=== PATIENT | female | born 1945 | race Caucasian/White ===

== ENCOUNTER 2017-08-11 07:18 | Day surgery (SDC) | payer MEDICARE, OTHER ==
[~2017-08-11] VITALS: Ht 175.3 cm; Wt 69.1 kg
[2017-08-11] VITALS (14 sets, daily range): BP systolic 93–124; BP diastolic 48–80; PULSE 57–92; TEMP 97.3–98
[2017-08-11] MEDS ORDERED: CALCIUM CARBON650 M2 PO (09:21)
[2017-08-11] MEDS ORDERED: TURMERIC500 MG PO (09:22)
[2017-08-11] MEDS ORDERED: PRENATAL FORMU1 EAC3 PO (09:23)
[2017-08-11] MEDS ORDERED: ZOCOR 40MG40 MG PO (09:23)
[2017-08-11] MEDS ORDERED: BENADRYL25 M2 PO (09:24)
[2017-08-11] MEDS ORDERED: ZANTAC 150MG T150 MG PO (09:24)
[2017-08-11] MEDS ORDERED: LEG CRAMP PO (09:26)
[2017-08-11] MEDS ORDERED: IMODIUM A-D2 MG PO (09:29)
[2017-08-12 04:25] VITALS: BP 109/36; PULSE 55; TEMP 97.9
[2017-08-12 08:21] VITALS: BP 90/46; PULSE 53; TEMP 97.5
== END 2017-08-12 11:30 | disposition home or self-care (01) ==
LOC: SDCO 07:18 → SURG 12:35 → SDCO 08-12 11:30
DX: C67.9 Malignant neoplasm of bladder, unspecified (principal); F17.210 Nicotine dependence, cigarettes, uncomplicated; E28.39 Other primary ovarian failure; Z79.899 Other long term (current) drug therapy
CPT/HCPCS: OP; J0690; J1100; J1885; J2270; J2405; J2704; J3010; J7120

== ENCOUNTER 2017-09-07 05:09 | Observation (INO) | payer MEDICARE, OTHER ==
[~2017-09-07] VITALS: Ht 172.7 cm; Wt 57.5 kg
[~2017-09-07 05:09] MED LIST: BENADRYL25 M2 PO; CALCIUM CARBON650 M2 PO; IMODIUM A-D2 MG PO; LEG CRAMP PO; PRENATAL FORMU1 EAC3 PO; TURMERIC500 MG PO; ZANTAC 150MG T150 MG PO; ZOCOR 40MG40 MG PO
[2017-09-07 05:37] VITALS: BP 120/63; PULSE 93; TEMP 97.9
[2017-09-07 08:45] VITALS: BP 122/56; PULSE 53; TEMP 97
[2017-09-07 09:00] VITALS: BP 128/60; PULSE 50
[2017-09-07 09:15] VITALS: BP 132/52; PULSE 51
[2017-09-07 09:30] VITALS: BP 109/52; PULSE 61
[2017-09-07 15:09] VITALS: BP 110/56; PULSE 60; TEMP 97.9
== END 2017-09-07 17:50 | disposition home or self-care (01) ==
LOC: SDCO 05:09 → SURG 08:26 → SDCO 08:35 → SURG 08:35
DX: C67.2 Malignant neoplasm of lateral wall of bladder (principal); N32.89 Other specified disorders of bladder; E78.5 Hyperlipidemia, unspecified; F17.210 Nicotine dependence, cigarettes, uncomplicated; Z80.42 Family history of malignant neoplasm of prostate
CPT/HCPCS: J0690; J2405; J2704; J3010; J7120

== ENCOUNTER → 2018-01-10 | Outpatient (REF) | LOC: ZLAB.WCH 16:04 | DX: Z01.89 Encounter for other specified special examinations (principal) ==

== ENCOUNTER → 2020-04-25 | Outpatient (REF) ==
[2020-04-25 16:42] LABS: CLOSTRIDIUM DIFF A/B POS; CLOSTRIDIUM DIFF A/B INTERP Toxigenic C.diff POS
== END ==
LOC: ZLAB.WCH 15:43
PROVIDERS: Internal Medicine Gastroenterology
DX: Z01.89 Encounter for other specified special examinations (principal)

== ENCOUNTER 2020-06-22 20:23 | Inpatient (IN) | payer MEDICARE, OTHER ==
[~2020-06-22] VITALS: Ht 172.7 cm; Wt 48.4 kg
[2020-06-22] MEDS ORDERED: ATROVENT I0.2 MG/1 M IH (23:20)
[2020-06-22] MEDS ORDERED: PREDNISONE10 MG PO (23:20)
[2020-06-22] MEDS ORDERED: PREDNISONE 5MG5 MG PO (23:20)
[2020-06-22 23:21] VITALS: BP 108/71; PULSE 95; TEMP 97.7
[2020-06-23] VITALS (8 sets, daily range): BP systolic 86–131; BP diastolic 43–68; PULSE 89–102; TEMP 97.2–97.8
[2020-06-23 06:44] LABS: BASO % 0.1 % (0.0-2.0); EOS % 0.2 % (0-4.0); GRAN # 10.1 (1.4-6.5); GRAN % 81.7 % (42.2-75.2); HEMATOCRIT 37.4 % (37.0-47.0); HEMOGLOBIN 12.8 g/dl (12.5-16.0); LYMPH # 1.5 (1.2-3.4); LYMPH % 12.5 % (20.0-51.0); MEAN CELL VOLUME 92 fl (80.0-100.0); MEAN CORPUSCULAR HEMOGLOBIN 31 pg (27.0-31.0); MEAN CORPUSCULAR HGB CONC 34 g/dl (33.0-37.0); MEAN PLATELET VOLUME 8.7 fl (7.4-10.4); MONO # 0.6 (0.1-0.6); PLATELET COUNT 330 K/mm3 (130-400); RED BLOOD COUNT 4.07 M/mm3 (4.10-5.30); REDCELL DISTRIBUTION WIDTH-CV 11.9 % (11.5-14.5)
[2020-06-23 06:59] LABS: CALCIUM 8.5 mg/dL (8.4-10.2); CREATININE, serum 0.67 (0.52-1.25); POTASSIUM 3.8 mmol/L (3.4-5.0)
--- NOTE | 2020-06-23 07:55 | NUR ---
Lying in bed with eyes open. Alert and oriented x4. Having some pain behind ears, patient thinks this is from rubbing the enlarged lymph nodes on the pillow while sleeping. Tylenol administered as prescribed for this discomfort per patient request. Patient also have all over itching, patient says that this is due to the prednisone that she is on and she has had this in the past, takes Benadryl at home for the itching. Benadryl administered as prescribed at this time. Assist patient in ordering clear liquid diet for breakfast. Patient denies additional needs or concerns at this time.
--- NOTE | 2020-06-23 11:24 | NUR ---
Sitting up in chair watching TV. Would like to go to bed to try to take a nap at this time. Assist patient into bed. Patient request IV site to be dc'd from left AC and restarted somewhere else. Restarted IV in left hand and dc'd prior IV site. Order clear liquid lunch per patient request. Denies additional needs at this time.
--- NOTE | 2020-06-23 13:00 | NUR ---
Review consent for ultrasound guided lymph node biopsy in neck with the patient. Patient denies questions and signs consent. Consent placed in chart. Patient sitting up in bed doing crosswords at this time. Denies additional needs.
--- NOTE | 2020-06-23 13:50 | NUR ---
Patient to ultrasound via wheelchair at this time.
--- NOTE | 2020-06-23 15:02 | NUR ---
Hr Leader met with the patient to complete intake. The patient lives in [place] with her , Earl. Her daughter, Kelly lives nearby. The patient has a walker. The [facility] has [facility]. The patient's PCP is Dr. Kavita Marsh and patient receives medications from [facility]. The patient does not have advanced directives in the EMR. The patient states they are complete and her PCP office has a copy. The patient plans to return home at discharge with home health services. ROMY contacted Karissa with Dr. Marsh's office and she confirmed they have a advanced directives on file and she will fax them to this SW. ROMY faxed referral/updates to [facility]. Discharge disposition: Home with [facility] [place], PT/OT/Nursing
--- NOTE | 2020-06-23 15:42 | NUR ---
Patient back in room in bed. Has bandaid on right side of neck from US. Patient says that the ultrasound went better than she had expected. Dr. Gipson in talking with the patient. Spouse in room as well. Denies additional needs at this time.
--- NOTE | 2020-06-23 15:47 | NUR ---
Oncology consult has been placed. Patient says that she has not seen either of the oncologists in the past. Patient says that she had spoken with a friend and they recommended Dr. Becker but told her either was good. Message left for Dr. Becker to contact this nurse.
--- NOTE | 2020-06-23 16:06 | NUR ---
Dr. Becker returns call and is updated on consult.
[2020-06-23 17:02] LABS: LACTATE DEHYDROGENASE 309 U/L (313-618)
--- NOTE | 2020-06-23 17:18 | NUR ---
Discuss with the patient fluid restriction and no free water. Patient says that she does not agree with the no free water because she is chronically hyponatremic and where is level is at is where her PCM says that she is good. Explain that we can discuss this with the provider further tomorrow. Powerade provided to the patient. Patient sitting up in bed finishing eating dinner. Denies additional needs at this time.
[2020-06-23 18:05] LABS: OSMOLALITY-SERUM 278 Osm/kg (275-300)
--- NOTE | 2020-06-23 20:00 | NUR ---
PATIENT WAS RECEIVED IN BED CALM.DUE MEDS GIVEN,ASSESMENT DONE.REPORTED OF PAINFUL JAWS.MEDS GIVEN PER MAY.HAS A AGUILERA.NO OTHER NEED AT THIS TIME.
[2020-06-24 03:20] VITALS: BP 100/41; PULSE 99; TEMP 98.1
--- NOTE | 2020-06-24 05:26 | NUR ---
PATIENT REMAINS CALM.PATIENT IS ON RA,IVFS ON GOOD PROGRESS.PATIENT WAS REPORTING OF PAIN ON THE JAW PAIN MEDS GIVEN PER MAY.NO OTHER NEEDS AT THIS TIME.
[2020-06-24 06:03] LABS: EOS % 0.1 % (0-4.0); GRAN # 6.3 (1.4-6.5); GRAN % 77.9 % (42.2-75.2); LYMPH # 1.2 (1.2-3.4); LYMPH % 15.4 % (20.0-51.0); MEAN CELL VOLUME 93 fl (80.0-100.0); MEAN CORPUSCULAR HGB CONC 34 g/dl (33.0-37.0); MONO # 0.5 (0.1-0.6); MONO % 6.1 % (1.7-9.3); PLATELET COUNT 249 K/mm3 (130-400); RED BLOOD COUNT 3.12 M/mm3 (4.10-5.30); REDCELL DISTRIBUTION WIDTH-CV 11.9 % (11.5-14.5)
[2020-06-24 06:18] LABS: HEMATOCRIT 29.1 % (37.0-47.0); HEMOGLOBIN 9.8 g/dl (12.5-16.0); MEAN CORPUSCULAR HEMOGLOBIN 31 pg (27.0-31.0)
[2020-06-24 06:19] LABS: CALCIUM 7.8 mg/dL (8.4-10.2); CREATININE, serum 0.61 (0.52-1.25); POTASSIUM 3.3 mmol/L (3.4-5.0)
--- NOTE | 2020-06-24 06:35 | NUR ---
Sitting up in bed with eyes open working on crossword puzzle. Alert and oriented x4. Rates pain in jaw area 2/10, describes as sore. Denies cough or shortness of air. Still feels some weakness with activity. [place] to dependent drainage with clear yellow urine in bag. Patient is ready to meet with Dr. Becker and says that Dr. Daniels is going to meet with her and her spouse this morning as well. Provide some Powerade to patient. Denies additional needs at this time.
[2020-06-24 07:24] VITALS: BP 104/50; PULSE 94; TEMP 97.7
--- NOTE | 2020-06-24 09:32 | NUR ---
Assessment as charted. Pt restingin bed upon arrivla. Band-aid dressing right side of neck clean, no edema, not redness. IV infusingNS @ 100 ml/hr. Telemetry on sinus rhythm. Pt denies no c/o pain.
[2020-06-24 10:45] VITALS: BP 110/59; PULSE 109; TEMP 97.8
--- NOTE | 2020-06-24 10:59 | NUR ---
Rating pain 7/10 in neck and jaw area and would like pain medication. Administer Dilaudid and Tylenol as prescribed. Patient lying in bed with eyes open. Is going to try to take a nap. Denies additional needs. Will talk with the hospitalist team further about the fluid restriction and free water restriction.
--- NOTE | 2020-06-24 11:54 | NUR ---
Sitting up in bed eating lunch. Rates pain 1/, says medication helped a lot. Discuss the fluid restriction and free water changes that were made. Discuss needing magnesium replaced via IV. Patient wants to wait until after IV mag is done to take hagan out. IV fluids dc'd as ordered. Patient denies additional needs at this time.
[2020-06-24] MEDS ORDERED: PREMARIN .3MG0.3 MG PO (13:58)
--- NOTE | 2020-06-24 14:14 | NUR ---
Catheter discontinued, joyce care completed. Pt. tolerated well, laying in bed. Denies any further needs at this time, call light within reach.
[2020-06-24 15:34] VITALS: BP 125/63; PULSE 112; TEMP 97.8
--- NOTE | 2020-06-24 16:40 | NUR ---
Sitting up in bed working on crosswOesia and watching TV. Minimal pain at this time in right jaw/neck but would like some Tylenol totry to stay ahead of the pain. Administer as prescribed. Patient says that she has urinated twice since having the catheter removed. Has ordered dinner and is waiting on it to be delivered. Denies additional needs at this time.
[2020-06-24 19:36] VITALS: BP 131/61; PULSE 105; TEMP 97.8
[2020-06-24 23:54] VITALS: BP 110/56; PULSE 105; TEMP 97.6
[2020-06-25 04:47] VITALS: BP 127/69; PULSE 96; TEMP 97.8
--- NOTE | 2020-06-25 06:33 | NUR ---
NO NEW ISSUES NOTED OR REPORTED BY PATIENT THROUGHOUT THE SHIFT. PATIENT UP TO THE BATHROOM X'3 THROUGHOUT THE NIGHT.
[2020-06-25 06:41] LABS: HEMATOCRIT 34.7 % (37.0-47.0); HEMOGLOBIN 11.6 g/dl (12.5-16.0); MEAN CELL VOLUME 94 fl (80.0-100.0); MEAN CORPUSCULAR HEMOGLOBIN 31 pg (27.0-31.0); MEAN CORPUSCULAR HGB CONC 33 g/dl (33.0-37.0); MEAN PLATELET VOLUME 8.6 fl (7.4-10.4); PLATELET COUNT 306 K/mm3 (130-400); RED BLOOD COUNT 3.69 M/mm3 (4.10-5.30); REDCELL DISTRIBUTION WIDTH-CV 12.1 % (11.5-14.5)
[2020-06-25 06:53] LABS: CALCIUM 8.8 mg/dL (8.4-10.2); CREATININE, serum 0.57 (0.52-1.25); MAGNESIUM 1.8 mg/dL (1.6-2.3); POTASSIUM 3.6 mmol/L (3.4-5.0)
[2020-06-25 07:41] VITALS: BP 130/81; PULSE 106; TEMP 97.5
--- NOTE | 2020-06-25 08:30 | NUR ---
Patient in bed working on [employer]. Alert and oriented x 3. Assessment complete. Bandaid to right neck from biopsy is CDI. Patient denies pain at this time. Dr. Becker in to see patient early this AM. Patient denies further needs at this time.
--- NOTE | 2020-06-25 10:02 | NUR ---
Technology Sales Specialist attended clinical rounds with the team. The patient's on speaker phone. The patient to have an MRI this day. Surgery consulted.
[2020-06-25] MEDS ORDERED: ZOFRAN ODT4 MG PO ×2 (10:12)
[2020-06-25] MEDS ORDERED: MELATONIN3 M1 PO ×2 (10:12)
[2020-06-25] MEDS ORDERED: NORCO 325 MG-51 TAB PO ×2 (10:14)
[2020-06-25 11:20] VITALS: BP 117/58; PULSE 113; TEMP 98.1
--- NOTE | 2020-06-25 13:31 | NUR ---
Patient to MRI by wheelchair.
--- NOTE | 2020-06-25 14:35 | NUR ---
Primary nurse was assisted with [phone] patient care by [employer] student Sridevi Bernal and [employer] instructor Jenny Odom MSN, RN
--- NOTE | 2020-06-25 14:45 | NUR ---
Primary nurse was assisted with [phone] patient care by [employer] AD[employer] student Sridevi Bernal and [facility] AD[employer] instructor Jenny Odom MSN, RN
--- NOTE | 2020-06-25 14:59 | NUR ---
Primary nurse was assisted with [phone] patient care by [employer] student Sridevi Bernal and [employer] instructor Jenny Odom MSN, RN
[2020-06-25 15:51] VITALS: BP 122/66; PULSE 102; TEMP 97.5
--- NOTE | 2020-06-25 16:04 | NUR ---
[facility]
--- NOTE | 2020-06-25 16:20 | NUR ---
HospitalistTHUY, patient's nurse staffed with this Director Of Graduate Admissions regarding discharge disposition. The patient and her , Bridger would like the patient to go to post acute rehab prior to starting chemo in order to build strength to withstand treatment. ROMY met with the patient and Bridger to discuss Medicare.gov's list of SNFs. The first choice is [facility] and second choice is [facility]. Referrals sent. Covid-19 test ordered. Awaiting screen. Discharge disposition: SNF; First choice [facility], Second choice [facility]. Referrals sent. Awaiting screen.
--- NOTE | 2020-06-25 18:13 | NUR ---
Patient doing well throughout the day. Up to recliner for meals. Deneis pain at this time, medication given this afternoon for neck pain. Denies further needs at this time. Will report off to emotional support teacher.
[2020-06-25 20:31] VITALS: BP 118/59; PULSE 111; TEMP 97.5
[2020-06-26 01:05] VITALS: BP 110/68; PULSE 95; TEMP 97.4
[2020-06-26 03:30] VITALS: BP 124/65; PULSE 91; TEMP 97.6
[2020-06-26 06:54] LABS: HEMOGLOBIN 10.7 g/dl (12.5-16.0); MEAN CELL VOLUME 95 fl (80.0-100.0); MEAN CORPUSCULAR HEMOGLOBIN 32 pg (27.0-31.0); MEAN CORPUSCULAR HGB CONC 34 g/dl (33.0-37.0); MEAN PLATELET VOLUME 8.7 fl (7.4-10.4); PLATELET COUNT 281 K/mm3 (130-400); RED BLOOD COUNT 3.35 M/mm3 (4.10-5.30); REDCELL DISTRIBUTION WIDTH-CV 12.5 % (11.5-14.5)
--- NOTE | 2020-06-26 07:03 | NUR ---
Report with ANAMARIA Simmons. Pt sitting up in bed ordering breakfast, denies needs at this time. Call light in reach.
[2020-06-26 07:07] LABS: CALCIUM 8.7 mg/dL (8.4-10.2); CREATININE, serum 0.5 (0.52-1.25); POTASSIUM 3.4 mmol/L (3.4-5.0)
[2020-06-26 07:08] LABS: HEMATOCRIT 31.7 % (37.0-47.0)
[2020-06-26 07:24] VITALS: BP 112/70; PULSE 115; TEMP 97.5
--- NOTE | 2020-06-26 07:47 | NUR ---
Primary nurse ANAMARIA Lyn reviewed ECG for Sotalol dose this AM. QT Interval with in range to give medication. Patient is NPO, he will still receive morning medications with a few sips of water per primary nurse.
--- NOTE | 2020-06-26 07:52 | NUR ---
Previous note entered by [facility] [facility] AD[employer] student.
--- NOTE | 2020-06-26 08:45 | NUR ---
Pt reports pain to right chest/shoulder radiating up to right face 8 out of 10 on pain scale. Pt requesting pain medication but not Tylenol with Codeine. PRN Dilaudid administered per orders. No further needs reported. Call light in reach.
[2020-06-26] MEDS ORDERED: NYSTATIN OR100 MU/ML PO (09:13)
[2020-06-26] MEDS ORDERED: ANORO IH ×2 (09:15)
[2020-06-26] MEDS ORDERED: PROVENTIL0.09 MG/A1 IH ×2 (09:15)
[2020-06-26 11:25] VITALS: BP 116/74; PULSE 117; TEMP 97.4
--- NOTE | 2020-06-26 11:25 | NUR ---
Director Building attended clinical rounds with the team. The patient's was on speaker phone. Dr. Daniels and Dr. Becker are recommending the patient start treatment jocelyn. The patient and her were agreeable to the original discharge plan of returning home with [facility] with PT/OT/Nursing services versus post acute rehab. The patient will discharge home today, 06/26. After rounds, ROMY met with the patient to present the IM form. The patient understood and signed the form. A copy was provided to the patient and the original was placed in the chart. ROMY faxed discharge orders to [facility] with [facility]. ROMY contacted [facility] and they will continue with services for the patient. There are no additional needs.
--- NOTE | 2020-06-26 13:45 | NUR ---
Primary nurse was assisted with [phone] patient care by [employer] student Sridevi Bernal and [employer] instructor Jenny Odom MSN, RN.
--- NOTE | 2020-06-26 14:18 | NUR ---
Provider notified to change prescriptions sent to [facility] instead of [facility] in [place] per pt's request. Discharge instructions reviewed with pt regarding appointments and new medications. Pt discharged home, escorted out of facility via WC accompanied by EDI DEVELOPER and pt's .
[2020-06-26] MEDS ORDERED: NORCO 325 MG-51 TAB PO (14:25)
== END 2020-06-26 14:25 | disposition home health service (06) | DRG 829 ==
LOC: MEDICAL 20:23
PROVIDERS: Physician Assistant; Student in an Organized Health Care Education/Training Program; ADMIT Hospitalist
PROC: 07B13ZX Excision of Right Neck Lymphatic, Percutaneous Approach, Diagnostic (ICD-10-PCS; principal; 2020-06-23)
DX: C7A.1 Malignant poorly differentiated neuroendocrine tumors (principal); E87.1 Hypo-osmolality and hyponatremia; K86.1 Other chronic pancreatitis; Z85.51 Personal history of malignant neoplasm of bladder; R53.81 Other malaise; F17.210 Nicotine dependence, cigarettes, uncomplicated; K59.00 Constipation, unspecified; E87.6 Hypokalemia; J40 Bronchitis, not specified as acute or chronic; D72.829 Elevated white blood cell count, unspecified; T38.0X5A Adverse effect of glucocorticoids and synthetic analogues, initial encounter; E78.5 Hyperlipidemia, unspecified; K21.9 Gastro-esophageal reflux disease without esophagitis; M19.90 Unspecified osteoarthritis, unspecified site; K31.84 Gastroparesis; B37.9 Candidiasis, unspecified; Z20.822 Contact with and (suspected) exposure to COVID-19; Z80.42 Family history of malignant neoplasm of prostate; Z79.52 Long term (current) use of systemic steroids
CPT/HCPCS: 99223-AI; 99232-AI; 99239; A9585; J1170; J1650; J3475; J7030; J7512

== ENCOUNTER 2020-06-30 05:14 | Day surgery (SDC) | payer MEDICARE, OTHER ==
[~2020-06-30] VITALS: Ht 172.7 cm; Wt 47.7 kg
[~2020-06-30 05:14] MED LIST changes: +ANORO IH; +ATROVENT I0.2 MG/1 M IH; +MELATONIN3 M1 PO; +NORCO 325 MG-51 TAB PO; +NYSTATIN OR100 MU/ML PO; +PREDNISONE 5MG5 MG PO; +PREDNISONE10 MG PO; +PREMARIN .3MG0.3 MG PO; +PROVENTIL0.09 MG/A1 IH; +ZOFRAN ODT4 MG PO
[2020-06-30 06:04] VITALS: BP 107/69; PULSE 112; TEMP 98.1
[2020-06-30] MEDS ORDERED: PROAIR HFA0.09 MG/AC IH (06:10)
[2020-06-30] MEDS ORDERED: PRENATAL PO (06:11)
[2020-06-30] MEDS ORDERED: ANORO IH (06:12)
[2020-06-30] MEDS ORDERED: LASIX 40MG TABL40 MG PO (06:13)
[2020-06-30] MEDS ORDERED: CALCIUM 600MG+D1 TAB PO (06:14)
[2020-06-30] MEDS ORDERED: K-DUR20 MEQ PO (06:16)
[2020-06-30] MEDS ORDERED: FIBERCON PO (06:17)
[2020-06-30] MEDS ORDERED: ZOFRAN 4MG T4 MG/TAB PO (06:19)
[2020-06-30] MEDS ORDERED: MELATIN 3 MG-11 TAB PO (06:22)
[2020-06-30] MEDS ORDERED: REQUIP2 MG PO (06:23)
[2020-06-30] MEDS ORDERED: GOOD SENSE TUS120 ML PO (06:25)
[2020-06-30] MEDS ORDERED: BENADRYL25 M2 PO (06:26)
[2020-06-30] MEDS ORDERED: XANAX .25M0.25 MG/TA PO (06:26)
[2020-06-30] MEDS ORDERED: NORCO 325 MG-51 TAB PO ×2 (06:31→09:03)
[2020-06-30] MEDS ORDERED: XOPENEX 1.1.25 MG/3 IH (06:33)
[2020-06-30] MEDS ORDERED: ZAROXOLYN5 MG PO (06:37)
[2020-06-30 08:28] VITALS: BP 115/68; PULSE 91; TEMP 98.1
--- NOTE | 2020-06-30 08:28 | NUR ---
TO RM 8 PER CART FROM OR. ALERT ORIENTED X3, TALKING TO STAFF. PATIENT STATED SHE WAS SO EXCITED TO HAVE THE PORT. RECEIVED WATER, COFFEE, AND VANILLA PUDDING.
[2020-06-30 08:45] VITALS: BP 105/85; PULSE 97
--- NOTE | 2020-06-30 08:45 | NUR ---
ATE 100% COFFEE AND PUDDING, BUT ONLY SIPS OF WATER. STATED SHE WAS ON A WATER LIMIT. DR GALLARDO INTO TALK WITH PATIENT. DR GALLARDO CALLED AND UPDATED.
[2020-06-30 09:00] VITALS: BP 113/61; PULSE 16
--- NOTE | 2020-06-30 09:00 | NUR ---
DRANK 2ND CUP OF COFFEE AND TOLERATED WELL.
--- NOTE | 2020-06-30 09:25 | NUR ---
RECEIVED DISCHARGE INSTRUCTIONS AND VERBALIZED UNDERSTANDING. ASSISTED PATIENT DRESSED. CALLED FOR RIDE HOME.
--- NOTE | 2020-06-30 09:45 | NUR ---
DISCHARGED PER WC BY NURSING STAFF TO PRIVATE CAR IN CARE OF [facility].
== END 2020-06-30 10:14 | disposition home or self-care (01) ==
LOC: SDCO 05:14
DX: C7A.8 Other malignant neuroendocrine tumors (principal); K86.1 Other chronic pancreatitis; K85.90 Acute pancreatitis without necrosis or infection, unspecified; K59.00 Constipation, unspecified; K21.9 Gastro-esophageal reflux disease without esophagitis; K31.84 Gastroparesis; K86.81 Exocrine pancreatic insufficiency; J40 Bronchitis, not specified as acute or chronic; M19.90 Unspecified osteoarthritis, unspecified site; D64.9 Anemia, unspecified; E87.1 Hypo-osmolality and hyponatremia; E87.6 Hypokalemia; E78.5 Hyperlipidemia, unspecified; Z85.51 Personal history of malignant neoplasm of bladder; Z90.710 Acquired absence of both cervix and uterus; Z79.891 Long term (current) use of opiate analgesic; Z79.899 Other long term (current) drug therapy; Z88.2 Allergy status to sulfonamides; Z87.891 Personal history of nicotine dependence; Z20.822 Contact with and (suspected) exposure to COVID-19
CPT/HCPCS: C1788; J0690; J1100; J1644; J1720; J2405; J2704; J3010; J7120